=== PATIENT | male | born 1955 | race Caucasian/White ===

== ENCOUNTER 2017-03-07 08:02 | Day surgery (SDC) | payer BC ==
[~2017-03-07 08:02] MED LIST: Buffered Lidocaine 0.9% SYRIN* 5 ML/SYR SYRINGE INTRADERM ONE
[2017-03-07] MEDS ORDERED: Midazolam* 1 MG/ML 5 ML VIAL (5 MG) ONE (09:43)
[2017-03-07] MEDS ORDERED: Bupivacaine 0.25% SDV* 30 ML ONE (09:52)
[2017-03-07] MEDS ORDERED: fentaNYL* 50 MCG/ML 2 ML VIAL (100 MCG VIAL) ONE (09:58)
[2017-03-07] MEDS ORDERED: Midazolam* 1 MG/ML 2 ML VIAL (2 MG) ONE (10:09)
[2017-03-07] MEDS ORDERED: oxyCODONE TAB* 5 MG TAB PO PRN (10:12)
[2017-03-07] MEDS ORDERED: HYDROcodone/ACETAMIN 5-325 MG* 1 TAB PO PRN (10:12)
[2017-03-07] MEDS ORDERED: Ketorolac INJ* 30 MG/ML 1 ML VIAL ONE (10:12)
[2017-03-07] MEDS ORDERED: fentaNYL* 50 MCG/ML 2 ML VIAL (100 MCG VIAL) IV PRN (10:12)
[2017-03-07] MEDS ORDERED: Ondansetron INJ* 2 MG/ML VIAL IV PRN (10:12)
[2017-03-07] MEDS ORDERED: Naloxone* 0.4 MG/ML 1 ML VIAL IV PRN (10:12)
[2017-03-07 11:13] VITALS: BP 128/73
--- NOTE | 2017-03-08 14:56 | OP ---
DATE OF OPERATION: 03/07/17 - [facility] DATE OF : 51 SURGEON: Mahendra Langston MD SMALL BRAKE FORM OPERATOR: NOE Lugo ANESTHESIOLOGIST: Dr. Fay. ANESTHESIA: Local MAC. PRE-OP DIAGNOSIS: Right carpal tunnel syndrome. POST-OP DIAGNOSIS: Right carpal tunnel syndrome. OPERATIVE PROCEDURE: Right open carpal tunnel release. INDICATIONS: Skyler had progressive disease. We talked about risks and benefits. He wanted to have the carpal tunnel release. He does have severe disease and I had explained to him the likelihood of an incomplete recovery. ESTIMATED BLOOD LOSS: 2 mL. COMPLICATIONS: None. FINDINGS: As expected. DESCRIPTION OF PROCEDURE: Skyler was seen in the preoperative holding area. The correct side, site, and procedure were identified. He came back to the operating room where anesthesia was given and the operative area was infiltrated with 0.25% plain Marcaine. The arm was then prepped and draped in the usual fashion and time-out was performed. I began by exsanguinating the arm with the Esmarch and the tourniquet was inflated to 250 mmHg. A standard 2 to 3 cm longitudinal incision was made in the typical location for an open carpal tunnel release. Dissection was carried down through the subcutaneous tissue and palmar fascia. I then released the transverse carpal ligament just off the radial aspect of the hook of the hamate. When the release was completed distally, I came proximally, released the subcutaneous tissue and fascia, retracted this volarly and ulnarly with the Reece retractor. Under direct visualization, I released remainder of the transverse carpal ligament and distal antebrachial fascia with the tenotomy scissors. Once there was absolutely no compression on the nerve, I irrigated out the wound. Skin was closed with 4-0 nylon suture. Wound was dressed with Xeroform, 4 x 4s, sterile Webril and an Skyler bandage. Tourniquet was deflated. He was taken to the recovery room in stable condition. [id number] #: [id number] MTDD
== END 2017-03-07 11:59 | disposition home or self-care (01) ==
LOC: OR 08:02
PROVIDERS: ATTEND Orthopaedic Surgery Hand Surgery
DX: G56.01 Carpal tunnel syndrome, right upper limb (principal); I48.91 Unspecified atrial fibrillation; Z79.82 Long term (current) use of aspirin; G47.00 Insomnia, unspecified
CPT/HCPCS: J1885; J2250; J3010

== ENCOUNTER 2018-07-17 19:34 | Emergency (ER) | payer BC, MEDICARE ==
[2018-07-17 19:59] VITALS: BP 153/71
[2018-07-17] MEDS ORDERED: Albuterol/Ipratropium NEB.SOL* Albuterol 2.5 MG/Ipratropium 0.5 MG 3 ML INH ONE (20:08)
[2018-07-17] MEDS ORDERED: predniSONE TAB* 20 MG PO ONE (20:09)
[2018-07-17] MEDS ORDERED: Azithromycin TAB* 250 MG PO ONE (20:10)
[2018-07-17 20:42] LABS: Influenza A Molecular NEGATIVE (Negative); Influenza B Molecular NEGATIVE (Negative)
[2018-07-17] MEDS ORDERED: Albuterol HFA INHALER* 8 gm MDI INH ONE (20:46)
--- NOTE | 2018-07-17 20:46 | ED ---
Respiratory - HPI Summary HPI Summary: pt presents to the for evaluation of his respiratory issues. he states that he is never ill and he started with a cough and is now having wheezing and congestion. he presented for evaluation. he denies any specific chest pain. - History of Current Complaint Chief Complaint: UCRespiratory Stated Complaint: COUGH,CONGESTION Hx Obtained From: Patient Onset/Duration: Gradual Onset Timing: Constant Initial Severity: Mild Current Severity: Mild Pain Intensity: 2 Character: Wheezing, Cough (Productive) - Allergy/Home Medications Allergies/Adverse Reactions: Allergies Allergy/AdvReac Type Severity Reaction Status Date / Time No Known Allergies Allergy Verified 07/17/18 19:54 PMH/Surg Hx/FS Hx/Imm Hx Previously Healthy: Yes Cardiovascular History: Reports: Other Cardiovascular Problems/Disorders - CARDIAC ABLATION History: Reports: Hx Kidney Stones - 2 YEARS AGO Sensory History: Denies: Hx Contacts or Glasses, Hx Hearing Aid Opthamlomology History: Denies: Hx Contacts or Glasses - Surgical History Surgery Procedure, Year, and Place: CARDAIC ABLATION IN [place] Hx Anesthesia Reactions: No Infectious Disease History: No Infectious Disease History: Denies: Traveled Outside the [place] in Last 30 Days - Family History Known Family History: Positive: Other - Erectile dysfunction, took medication within the last 72 hours - Social History Alcohol Use: Weekly Alcohol Amount: 3 beers/week Substance Use Type: Reports: Marijuana Substance Use Comment - Amount & Last Used: occasionally Smoking Status (MU): Former Smoker Have You Smoked in the Last Year: No Review of Systems Constitutional: Negative Eyes: Negative Positive: Sore Throat Negative: Chest Pain Positive: Shortness Of Breath, Cough Gastrointestinal: Negative Genitourinary: Negative Musculoskeletal: Negative Skin: Negative Neurological: Negative Psychological: Normal All Other Systems Reviewed And Are Negative: No Physical Exam Triage Information Reviewed: Yes Vital Signs On Initial Exam: Initial Vitals Temp Pulse Resp BP Pulse Ox 98.7 F 75 16 153/71 99 07/17/18 19:55 07/17/18 19:55 07/17/18 19:55 07/17/18 19:55 07/17/18 19:55 Vital Signs Reviewed: Yes Appearance: Positive: Well-Appearing, No Pain Distress, Well-Nourished Skin: Positive: Warm, Dry Eyes: Positive: Normal, EOMI ENT: Positive: Normal ENT inspection, Hearing grossly normal, Pharyngeal erythema - minimal Neck: Positive: Supple, Nontender Respiratory/Lung Sounds: Positive: Rales, Rhonchi Cardiovascular: Positive: Normal, RRR, Pulses are Symmetrical in both Upper and Lower Extremities Abdomen Description: Positive: Nontender, Soft Bowel Sounds: Positive: Present Musculoskeletal: Positive: Normal, Strength/ROM Intact Neurological: Positive: Normal, Sensory/Motor Intact, Alert, Oriented to Person Place, Time, CN Intact II-III Psychiatric: Positive: Normal AVPU Assessment: Alert Diagnostics - Vital Signs Vital Signs Temp Pulse Resp BP Pulse Ox 07/17/18 19:55 98.7 F 75 16 153/71 99 - Laboratory Lab Statement: Any lab studies that have been ordered have been reviewed, and results considered in the medical decision making process. Disposition - Course Course Of Treatment: pt is a 63 melissa old male who presents with cough and significant congestion. he states that he feels short of breath and congested in his lungs. he denies any sick contacts. his chest xray shows no obvious pneumonias. he had marked wheezing and congestion on arrival. he received 1 duoneb and felt markedly better. he received prednisone po, azithromycin. his lungs are clear. he feels better. will d/c with instructions to f/u with pcp. influenza was negative. - Diagnoses Provider Diagnoses: Bronchitis Discharge - Sign-Out/Discharge Documenting (check all that apply): Patient Departure All imaging exams completed and their final reports reviewed: No - Discharge Plan Condition: Stable Disposition: HOME Prescriptions: Albuterol HFA INHALER* [Ventolin HFA Inhaler*] 2 puff INH Q4H PRN #1 mdi PRN Reason: Wheezing Azithromyxin CECELIA (NF) [Z-Cecelia (Zithromax) 250 mg tabs #6] 2 tab PO .TODAY, THEN 1 DAILY #6 tab predniSONE TAB* [Deltasone 20 MG TAB*] 60 mg PO DAILY #12 tab Patient Education Materials: Acute Bronchitis (ED) Referrals: Vj Bishop MD [Primary Care Provider] - Additional Instructions: Please take all medications as instructed. It is imperative to follow up with your primary care physician in 1-2 days. if you are worse, go to the nearest Emergency Department for further evaluation. - Billing Disposition and Condition Condition: STABLE Disposition: Home
--- NOTE | 2018-07-18 08:56 | UC ---
- Progress Note Progress Note: chest xray report : IMPRESSION: No radiographic evidence of acute cardiopulmonary disease. Course/Dx - Diagnoses Provider Diagnoses: Bronchitis Discharge - Sign-Out/Discharge Documenting (check all that apply): Patient Departure All imaging exams completed and their final reports reviewed: Yes - Discharge Plan Condition: Stable Disposition: HOME Prescriptions: Albuterol HFA INHALER* [Ventolin HFA Inhaler*] 2 puff INH Q4H PRN #1 mdi PRN Reason: Wheezing Azithromyxin CECELIA (NF) [Z-Cecelia (Zithromax) 250 mg tabs #6] 2 tab PO .TODAY, THEN 1 DAILY #6 tab predniSONE TAB* [Deltasone 20 MG TAB*] 60 mg PO DAILY #12 tab Patient Education Materials: Acute Bronchitis (ED) Referrals: Vj Bishop MD [Primary Care Provider] - Additional Instructions: Please take all medications as instructed. It is imperative to follow up with your primary care physician in 1-2 days. if you are worse, go to the nearest Emergency Department for further evaluation. - Billing Disposition and Condition Condition: STABLE Disposition: Home
== END 2018-07-17 21:08 | disposition home or self-care (01) ==
LOC: UCCORT 19:34
DX: J40 Bronchitis, not specified as acute or chronic (principal); Z87.891 Personal history of nicotine dependence
CPT/HCPCS: 71046; 99213; A9270-GY; G0463; J7512

== ENCOUNTER 2019-03-11 09:32 | Emergency (ER) | payer MEDICARE ==
[2019-03-11 10:00] VITALS: BP 148/67
--- NOTE | 2019-03-11 10:03 | UC ---
Throat Pain/Nasal Tk HPI - HPI Summary HPI Summary: Sinus pain and pressure x2 weeks. 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 Unresolved with OTC treatment. - History of Current Complaint Chief Complaint: UCGeneralIllness Stated Complaint: SINUS PRESSURE Time Seen by Provider: 03/11/19 10:01 Hx Obtained From: Patient Onset/Duration: Gradual Onset, Lasting Weeks Severity: Moderate Pain Intensity: 6 Associated Signs & Symptoms: Positive: Dysphagia, Sinus Discomfort, Nasal Discharge - Allergies/Home Medications Allergies/Adverse Reactions: Allergies Allergy/AdvReac Type Severity Reaction Status Date / Time No Known Allergies Allergy Verified 07/17/18 19:54 Home Medications: Home Medications Zolpidem TAB* [Ambien TAB*] 5 mg PO BEDTIME PRN 03/11/19 [History Confirmed ] PMH/Surg Hx/FS Hx/Imm Hx Previously Healthy: Yes - Surgical History Surgical History: Yes Surgery Procedure, Year, and Place: CARDAIC ABLATION IN [place] - Family History Known Family History: Positive: Respiratory Disease - Social History Alcohol Use: Occasionally Alcohol Amount: 3 beers/week Substance Use Type: Marijuana Substance Use Comment - Amount & Last Used: occasionally Smoking Status (MU): Former Smoker Have You Smoked in the Last Year: No When Did the Patient Quit Smoking/Using Tobacco: 40 YEARS AGO Review of Systems All Other Systems Reviewed And Are Negative: Yes ENT: Positive: Sore Throat, Sinus Congestion, Sinus Pain/Tenderness Respiratory: Positive: Cough Physical Exam Triage Information Reviewed: Yes Appearance: Well-Appearing, Well-Nourished, Pain Distress Vital Signs: Initial Vital Signs Temp 97.4 F 03/11/19 09:57 Pulse 69 03/11/19 09:57 Resp 15 03/11/19 09:57 BP 148/67 03/11/19 09:57 Pulse Ox 99 03/11/19 09:57 Vital Signs Reviewed: Yes Eye Exam: Normal ENT: Positive: Pharyngeal erythema, Nasal congestion, Nasal drainage, TM bulging Dental Exam: Normal Respiratory Exam: Normal Cardiovascular Exam: Normal Musculoskeletal Exam: Normal Skin Exam: Normal Throat Pain/Nasal Course/Dx - Course Course Of Treatment: hx obtained, exam performed ,meds reviewed, treaed for sinusitis - Differential Dx/Diagnosis Differential Diagnosis/HQI/PQRI: Pharyngitis, Sinusitis, URI Provider Diagnosis: Sinusitis Discharge ED - Sign-Out/Discharge Documenting (check all that apply): Patient Departure All imaging exams completed and their final reports reviewed: No Studies - Discharge Plan Condition: Stable Disposition: HOME Prescriptions: Azithromyxin CECELIA (NF) [Z-Cecelia (Zithromax) 250 mg tabs #6] 2 tab PO .TODAY, THEN 1 DAILY #6 tab Fluticasone NASAL SPRAY 50MCG* [Flonase NASAL SPRAY 50MCG*] 2 spray BOTH NARES DAILY #1 btl Patient Education Materials: Sinusitis (ED) Referrals: Vj Bishop MD [Primary Care Provider] - Additional Instructions: 1. take the medication as prescribed. 2. Neti pot or nasal saline spray as well 3. Follow up as needed. - Billing Disposition and Condition Condition: STABLE Disposition: Home
== END 2019-03-11 10:27 | disposition home or self-care (01) ==
LOC: UCCORT 09:32
DX: J32.9 Chronic sinusitis, unspecified (principal); J39.2 Other diseases of pharynx; Z87.891 Personal history of nicotine dependence
CPT/HCPCS: 99212; G0463